=== PATIENT | male | born 1970 | race Hispanic/Latino ===

== ENCOUNTER 2024-10-18 07:46 | Day surgery (SDC) | payer OTHER ==
[~2024-10-18] VITALS: Ht 154.9 cm; Wt 77.1 kg
[~2024-10-18 07:46] MED LIST: EAR DROPS6.5 % AD; MOTRIN400 MG/TAB PO
[2024-10-18] MEDS ORDERED: FAMOTIDINE 10MG/ML 2ML SDV IV ONE (07:55)
[2024-10-18] MEDS ORDERED: LACTATED RINGER'S 1,000 ML IV ONE (07:55)
[2024-10-18 09:59] VITALS: BP 137/79
[2024-10-18] MEDS ORDERED: LIDOCAINE HCL 2% 2ML SDV IV ONE (12:53)
[2024-10-18] MEDS ORDERED: PROPOFOL 200 MG/20 ML VIAL IV ONE (12:53)
== END 2024-10-18 10:05 | disposition home or self-care (01) | DRG 379 ==
LOC: ORM 07:46
PROVIDERS: ATTEND Surgery
PROC: 0DBH8ZX Excision of Cecum, Via Natural or Artificial Opening Endoscopic, Diagnostic (ICD-10-PCS; principal; 2024-10-18)
PROC: 0DBL8ZX Excision of Transverse Colon, Via Natural or Artificial Opening Endoscopic, Diagnostic (ICD-10-PCS; 2024-10-18)
PROC: 0DBN8ZX Excision of Sigmoid Colon, Via Natural or Artificial Opening Endoscopic, Diagnostic (ICD-10-PCS; 2024-10-18)
PROC: 0DBC8ZX Excision of Ileocecal Valve, Via Natural or Artificial Opening Endoscopic, Diagnostic (ICD-10-PCS; 2024-10-18)
DX: K57.31 Diverticulosis of large intestine without perforation or abscess with bleeding (principal); D12.5 Benign neoplasm of sigmoid colon; D12.0 Benign neoplasm of cecum; D12.3 Benign neoplasm of transverse colon; K64.8 Other hemorrhoids